=== PATIENT | male | born 1980 | race Hispanic/Latino ===

== ENCOUNTER 2017-06-19 12:09 | Emergency (ER) | payer MEDICARE ==
[2017-06-19 12:09] VITALS: BMI 24.2
[2017-06-19 12:16] VITALS: BP 138/76; PULSE 118; RESP 18; TEMP 98.5; O2SAT 98
== END 2017-06-19 13:14 | disposition left against medical advice (07) ==
LOC: C.ER 12:09
DX: R56.9 Unspecified convulsions (principal); Z02.9 Encounter for administrative examinations, unspecified

== ENCOUNTER 2017-06-27 01:06 | Emergency (ER) | payer MEDICARE ==
[2017-06-27 01:06] VITALS: BMI 24.2
--- NOTE | 2017-06-27 02:20 | C.PDOC ---
History Of Present Illness 36 year old male with a Hx of schizophrenia and bipolar disorder presents to the ER requesting a dose of xanax to hold him off until he gets a refill of his medications tomorrow. Denies hallucinations, homicidal ideation, or suicidal ideation. Time Seen by Provider: 06/27/17 01:34 Chief Complaint (Nursing): Psychiatric Evaluation History Per: Patient History/Exam Limitations: no limitations Onset/Duration Of Symptoms: Hrs Current Symptoms Are (Timing): Still Present Suicide/Self Injury Attempted (Context): None Associated Symptoms: denies: Depression, Paranoia, Suicidal Thoughts, Suicidal Plan Involuntary Hold By: None Recent travel outside of the [place]: No Past Medical History Reviewed: Historical Data, Nursing Documentation, Vital Signs Vital Signs: Last Vital Signs Temp 98.2 F 06/27/17 03:23 Pulse 89 06/27/17 03:23 Resp 20 06/27/17 03:23 BP 163/95 H 06/27/17 03:23 Pulse Ox 99 06/27/17 05:35 - Medical History PMH: Anxiety, Back Problems, Benign Prostatic Hyperplasia, Bipolar Disorder, Depression, Migraine, Schizophrenia Surgical History: Tonsillectomy (age 4) - [facility] Procedures INJECT/INFUSE NEC (04/14/07) PSYCHIA INTERV/EVAL NEC (04/18/14) PSYCHIAT DRUG THERAP NEC (09/26/04) Family History: States: Unknown Family Hx - Social History Hx Tobacco Use: No Hx Alcohol Use: No Hx Substance Use: No - Immunization History Hx Tetanus Toxoid Vaccination: No Hx Influenza Vaccination: Yes Hx Pneumococcal Vaccination: No Review Of Systems Constitutional: Negative for: Fever, Chills Gastrointestinal: Negative for: Nausea, Vomiting Psych: Negative for: Anxiety, Suicidal ideation Physical Exam - Physical Exam Appears: Well, Non-toxic, No Acute Distress Skin: Normal Color, Warm, Dry Head: Atraumatic, Normacephalic Eye(s): bilateral: Normal Inspection, EOMI Ear(s): Bilateral: Normal Oral Mucosa: Moist Chest: Symmetrical, No Tenderness Cardiovascular: Rhythm Regular Respiratory: Normal Breath Sounds, No Rales, No Rhonchi, No Wheezing Neurological/Psych: Oriented x3, Normal Speech Gait: Steady ED Course And Treatment O2 Sat by Pulse Oximetry: 99 (Room air) Pulse Ox Interpretation: Normal Progress Note: Patient was seen and evaluated by plant worker who discussed case with Dr. Wilkinson who cleared patient for discharge. Patient give a dose of xanax and discharge with instructions to follow up with PMD. Disposition - Disposition Referrals: Non [facility] Provider, [Primary Care Provider] - Disposition: HOME/ ROUTINE Disposition Time: 02:19 Condition: STABLE Additional Instructions: Please follow up with your psychiatrist Please warehouse order picker your meds as stated Return to ER if worse Instructions: Anxiety (ED) Forms: [employer]app[employer]ive (Argentine) - Clinical Impression Clinical Impression: Schizophrenia, Anxiety - Scribe Statement The provider has reviewed the documentation as recorded by the Scribe Yoshi Cooper All medical record entries made by the Scribe were at my direction and personally dictated by me. I have reviewed the chart and agree that the record accurately reflects my personal performance of the history, physical exam, medical decision making, and the department course for this patient. I have also personally directed, reviewed, and agree with the discharge instructions and disposition.
[2017-06-27 03:24] VITALS: BP 163/95; PULSE 89; RESP 20; TEMP 98.2
[2017-06-27 05:32] VITALS: O2SAT 99
== END 2017-06-27 03:24 | disposition home or self-care (01) ==
LOC: C.ER 01:06 → SUPCPDRO 01:06 → C.ER 03:24
DX: F41.9 Anxiety disorder, unspecified (principal); F20.9 Schizophrenia, unspecified

== ENCOUNTER 2017-08-16 20:24 | Inpatient (IN) | payer MEDICARE ==
[2017-08-16 20:24] VITALS: BMI 24.2
[2017-08-16 20:52] VITALS: RESP 20
--- NOTE | 2017-08-16 21:24 | C.PDOC ---
History Of Present Illness Patient presents to the ER with a complaint of feeling depressed and hearing voices. Denies suicidal or homicidal ideation. Time Seen by Provider: 08/16/17 21:24 Chief Complaint (Nursing): Psychiatric Evaluation History Per: Patient History/Exam Limitations: no limitations Onset/Duration Of Symptoms: Days Current Symptoms Are (Timing): Still Present Suicide/Self Injury Attempted (Context): None Modifying Factor(s): None Severity: None Pain Scale Rating Of: 0 Associated Symptoms: Depression, Other (Hearing voices). denies: Suicidal Thoughts, Suicidal Plan Involuntary Hold By: None Recent travel outside of the [place]: No Past Medical History Reviewed: Historical Data, Nursing Documentation, Vital Signs Vital Signs: Last Vital Signs Temp 98.7 F 08/16/17 20:46 Pulse 109 H 08/16/17 20:46 Resp 20 08/16/17 20:46 BP 111/70 08/16/17 20:46 Pulse Ox 99 08/16/17 23:02 - Medical History PMH: Anxiety, Back Problems, Benign Prostatic Hyperplasia, Bipolar Disorder, Depression, Migraine, Schizophrenia Surgical History: Tonsillectomy (age 4) - [facility] Procedures INJECT/INFUSE NEC (04/14/07) PSYCHIA INTERV/EVAL NEC (04/18/14) PSYCHIAT DRUG THERAP NEC (09/26/04) Family History: States: Unknown Family Hx - Social History Hx Tobacco Use: No Hx Alcohol Use: No Hx Substance Use: No - Immunization History Hx Tetanus Toxoid Vaccination: No Hx Influenza Vaccination: Yes Hx Pneumococcal Vaccination: No Review Of Systems Constitutional: Negative for: Fever, Chills Gastrointestinal: Negative for: Nausea, Vomiting, Diarrhea Psych: Positive for: Depression, Other (Hearing voices. No homicidal ideation.) . Negative for: Suicidal ideation Physical Exam - Physical Exam Appears: Non-toxic Skin: Warm, Dry Head: Normacephalic Oral Mucosa: Moist Chest: Symmetrical, No Tenderness Cardiovascular: Rhythm Regular Respiratory: No Rales, No Rhonchi, No Wheezing Gastrointestinal/Abdominal: Soft, No Tenderness Neurological/Psych: Oriented x3 ED Course And Treatment - Laboratory Results Result Diagrams: 08/16/17 22:13 08/16/17 22:13 O2 Sat by Pulse Oximetry: 99 (room air) Pulse Ox Interpretation: Normal Progress Note: EKG, blood work, and urinalysis ordered. Disposition Discussed With : Tamra Ritchie Comment: accepted the pt onher service and took over the care at 11:20PM Doctor Will See Patient In The: Hospital Counseled Patient/Family Regarding: Studies Performed, Diagnosis - Disposition Disposition: HOSPITALIZED Disposition Time: 21:24 Condition: FAIR Forms: [facility] (Mauritian) - Clinical Impression Clinical Impression: Schizophrenia - Scribe Statement The provider has reviewed the documentation as recorded by the Scribe Yoshi Cooper All medical record entries made by the Scribe were at my direction and personally dictated by me. I have reviewed the chart and agree that the record accurately reflects my personal performance of the history, physical exam, medical decision making, and the department course for this patient. I have also personally directed, reviewed, and agree with the discharge instructions and disposition. Decision To Admit - Pt Status Changed To: Hospital Disposition Of: Inpatient - Admit Certification Admit to Inpatient:: After my assessment, the patient will require hospitalization for at least two midnights. This is because of the severity of symptoms shown, intensity of services needed, and/or the medical risk in this patient being treated as an outpatient. - InPatient: Physician Admission Certification: I certify that this patient requires 2 or more midnights of care for the following reason:: After my assessment, the patient will require hospitalization for at least two midnights. This is because of the severity of symptoms shown, intensity of services needed, and/or the medical risk in this patient being treated as an outpatient. - . Bed Request Type: Psychiatry Admitting Physician: Tamra Ritchie Patient Diagnosis: Schizophrenia
[2017-08-16 22:16] LABS: BASO % 0.2 % (0.0-2.0); EOS % 0.3 % (0.0-4.0); HEMOGLOBIN 15.2 g/dL (12.0-18.0); LYMPH # 1.1 K/uL (1.0-4.3); MEAN CELL VOLUME 86.3 fL (80.0-94.0); MEAN CORPUSCULAR HEMOGLOBIN 29.4 pg (27.0-31.0); MEAN PLATELET VOLUME 7.1 fL (7.2-11.7); MONO # 0.8 K/uL (0.0-0.8); NEUT # 10.1 K/uL (1.8-7.0); NEUT % 83.5 % (50.0-75.0); RBC 5.18 Mil/uL (4.40-5.90); RED CELL DISTRIBUTION WIDTH 13.7 % (11.5-14.5)
[2017-08-16 22:18] LABS: URINE BILIRUBIN NEGATIVE (NEGATIVE); URINE BLOOD NEGATIVE (NEGATIVE); URINE CLARITY Clear (Clear); URINE COLOR Straw (YELLOW); URINE GLUCOSE (UA) NORMAL (Normal); URINE LEUKOCYTE ESTERASE NEG Leu/uL (Negative); URINE NITRATE NEGATIVE (NEGATIVE); URINE PROTEIN NEGATIVE (NEGATIVE); URINE UROBILINOGEN NORMAL mg/dL (0.2-1.0)
[2017-08-16 22:19] LABS: PLATELET COUNT 343 K/uL (130-400); WHITE BLOOD COUNT 12.1 K/uL (4.8-10.8)
[2017-08-16 22:31] LABS: ALB/GLOB RATIO 1.5 (1.0-2.1); ALBUMIN 4.2 g/dL (3.5-5.0); ALT/SGPT 17 U/L (21-72); AST/SGOT 25 U/L (17-59); BLOOD UREA NITROGEN 9 mg/dL (9-20); CALCIUM 8.4 mg/dl (8.6-10.4); GFR AFRICAN-AMERICAN > 60; GFR NON-AFRICAN AMERICAN > 60
[2017-08-16 22:34] LABS: BARBITURATES, UR NEGATIVE (NEGATIVE); BENZODIAZEPINES, UR NEGATIVE (NEGATIVE); OPIATES, UR NEGATIVE (NEGATIVE); PHENCYCLIDINE, UR NEGATIVE (NEGATIVE)
[2017-08-16 22:40] LABS: NEUTROPHIL 82 % (50-75); TOTAL CELLS COUNTED 100
[2017-08-16 22:41] LABS: LYMPHOCYTE 11 % (20-40); MONOCYTE 7 % (0-10); PLATELET ESTIMATE NORMAL (NORMAL)
[2017-08-17 00:18] VITALS: O2SAT 97
--- NOTE | 2017-08-17 01:03 | PCM.BM ---
<Dash Covarrubias - Last Filed: 08/17/17 01:01> Treatment Plan Problems - Problems identified on initial assessmt Auditory Hallucination Date Initiated: 08/17/17 Time Initiated: 00:25 Assessment reference: NA Status: Active Visual Hallucination Date Initiated: 08/17/17 Time Initiated: 00:25 Assessment reference: NA Status: Active Treatment assets and liabiliti Patient Assests: adapts well, cooperative, insightful, self-reliant, ADL independent, negotiates basic needs Patient Liabilities: live alone, poor support system - Milieu Protocol Maintain good personal hygiene: daily Encourage regular showers, daily Remind patient to perform daily oral care, daily Assist patient to perform ADL's Maintain personal safety: every shift Educate patient to report safety concerns to staff, every shift Monitor environment for contraband/sharps Medication safety: Monitor for expected outcome, potential side effects: every shift, Assess barriers to learning: every shift, Assess readiness for medication education: every shift <Bobbi Kim - Last Filed: 08/17/17 10:39> Family Contact Family involvement: Famliy/SO not involved - Goals for Treatment Patient goals for treatment: "I need an outpatient program." Discharge/Continuing Care - Education Needs Education Needs: Patient Medication, Patient Coping Skills - Discharge Discharge Criteria: Tolerates medication w/o severe side effects, Free of Suicidal thoughts, Reduction of target symptoms Discharge to:: Home - Treatment Team Participation Discussed with Family/SO: No Was Patient/Family/SO present at Treatment Team Meeting: Yes <Ken Maki - Last Filed: 08/17/17 14:35> - Diagnosis (1) Stimulant use disorder Status: Acute Interventions: 08/17/17 14:35 * Assess 7x/week regarding severity of withdrawal * Educate regarding risks, benefits, side effects and alternatives of medications * Use Motivational Interviewing for abstinence * Use CBT for relapse prevention * Medication management for withdrawal symptoms * Encourage medication assisted treatment * (2) Sedative, hypnotic or anxiolytic use disorder, severe, dependence Status: Acute Interventions: 08/17/17 14:35 * Assess 7x/week regarding severity of withdrawal * Educate regarding risks, benefits, side effects and alternatives of medications * Use Motivational Interviewing for abstinence * Use CBT for relapse prevention * Medication management for withdrawal symptoms * Encourage medication assisted treatment * (3) Schizophrenia Status: Acute Interventions: 08/17/17 14:35 * Assess/adjust medications daily and /or as needed * See patient on an individual basis 7x/week to assess status of hallucinations * Discuss risks, benefits, side effects and alternatives of medications *
--- NOTE | 2017-08-17 11:47 | PCM.PSYCH ---
Initial Psychiatric Evaluation - Initial Psychiatric Evaluation Type of Admission: Voluntary Legal Status: Capacity Chief Complaint (in patient's own words): "I need med adjustment" History of Present Illness and Precipitating Events: The patient is seen, chart reviewed and case discussed. This is a 36-year-old male, single, no child, living alone in an apartment around [facility]. He says that he is alienated from his family and as per chart he broke up with his girlfriend 4 months ago. The patient is a poor historian, very guarded and evasive. He is also very irate and selective about his medications. Currently, he is on a near-toxic, dangerous and nonsensical medication regimen from a Dr. Prescott, "a neurologist" he claims. He takes two max dose stimulants together: adderall 60 mg/d AND vyvanse 70 mg/d. On top of that he is on 150 mg elavil, which he blames for his current problems (paranoia, voices, etc.) and Xanax 2 mg TID! And recently he was given 20 tablets of Oxy 10 mg for "gum surgery." He refuses the fact that stimulants, especially in high-doses, can cause psychotic reactions and also counteracts Xanax as they can cause severe anxiety , and that Xanax causes addiction... He blames the commercial underwriter with "assuming things " (??) and says he has no intention to stop them, but on a positive note agreed to "consider" and agreed with Librium detox for the Xanax. He asked for several new-generation but non-formulary medications as well, but then agreed with Zyprexa. He does not want to use any antidepressant or Seroquel and is "allergic " to many meds. He reports paranoid delusions or preoccupations: "people watching me, there are people outside the window" etc. but they are less intense now and he denies AVH which he had at home; shadows, whispers, etc. He denies goldy/homi ideation. Denies drug use, alcohol, is vague about his daily life or stressors. Past psych hx: Dx'ed with schizophrenia, bipolar d/o, schizoafective d/o and had at least 10 admissions, incl. once at a [facility]. He says he didn't have "luck with psychiatrists" and now sees a neurologist but is open to referrals. Family psych hx: Denies Medical hx: Alleged narcolepsy. Current Medications: Active Medications Generic Name Dose Route Start Last Admin Trade Name Freq PRN Reason Stop Dose Admin Chlordiazepoxide 0 mg 08/17/17 12:00 Librium PO 08/22/17 11:59 Q6 BERRY Taper Chlordiazepoxide 25 mg 08/17/17 11:41 Librium PO 08/21/17 11:42 Q6H PRN benzo withdrawal Clonidine HCl 0.1 mg 08/17/17 11:41 Catapres PO Q4H PRN Symptoms of alcohol withdrawl Hydroxyzine HCl 50 mg 08/17/17 11:43 Atarax PO Q6H PRN Anxiety Olanzapine 5 mg 08/17/17 21:00 Zyprexa PO 08/17/17 21:01 ONCE ONE Olanzapine 10 mg 08/18/17 22:00 Zyprexa PO HS BERRY Pneumococcal Polyvalent Vaccine 0.5 ml 08/20/17 10:20 Pneumovax 23 Vaccine IM 08/20/17 10:21 .ONCE ONE Trazodone HCl 100 mg 08/17/17 11:43 Desyrel PO HS PRN Insomnia Past Psychiatric History - Past Psychiatric History Previous Treatment History: Inpatient Pertinent Medical Hx (Current Medical&Sleep Prob, Allergies): Allergies Allergy/AdvReac Type Severity Reaction Status Date / Time duloxetine HCl Allergy Verified 08/16/17 20:53 [From Cymbalta] promethazine Allergy Verified 08/16/17 20:53 quetiapine fumarate Allergy Verified 08/16/17 20:53 [From Seroquel] terbinafine HCl Allergy Verified 08/16/17 20:53 [From Lamisil] trazodone Allergy Verified 08/16/17 20:53 haloperidol [From Haldol] AdvReac Severe grinds Verified 08/16/17 20:53 teeth No Known Home Med 08/16/17 Review of Systems - Psychiatric Psychiatric: Abnormal Sleep Pattern, Anxiety, Change in Appetite, Difficulty Concentrating, Hallucinations (less), Irritability, Mood Swings, Paranoia. absent: Homicidal Ideation, Suicidal Ideation Mental Status Examination - Personal Presentation Personal Presentation: Looks older than stated age - Affect Affect: Constricted - Motor Activity Motor Activity: Calm - Reliability in Providing Information Reliability in Providing Information: Fair - Speech Speech: Disorganized - Mood Mood: Anxious, Other (irate) - Formal Thought Process Formal Thought Process: Hallucinations, Delusions, Paranoia, Loosening of associations - Cognitive Functions Orientation: Person, Place, Situation, Time Sensorium: Alert Attention/Concentration: Attentive Estimate of Intelligence: Average Judgement: Imparied, as evidence by: Poor judgement Memory: Recent intact, as evidence by: Ability to recall events of the day, Remote intact, as evidenced by: Abilit to recall sig. life events - Risk Risk: Seizure, Withdrawal, Diminished functioning - Limitations Limitations: Living alone DSM 5 DX - DSM 5 DSM 5 Diagnosis: Schizoaffective d/o - bipolar type Personality d/o - unspecified Psychostimulant use d/o -severe Sedative hypnotic or anxiolytic use d/o - severe Anxiety d/o- unspecified - Recommended/Plan of Treatment Treatment Recommendations and Plan of Treatment: Librium detox Zyprexa 5 mg tonight, 10 mg tomorrow Monitor opioid wdw (uds negative but he had a rx) Gabapentin for augmentation As needed medications All risks, benefits and alternatives of the meds discussed, and the pt agreed and understood. Attend groups and activities Supportive therapy and psychoeducation [place] for abstinence CBT for relapse prevention Refer to rehab or IOP, and self-help groups 34 min Projected ELOS: 7 days Prognosis: Fair (low insight) Discharge Plan and Discharge Criteria: No acute sxs refer to outpt psych and IOP
[2017-08-18 06:42] VITALS: TEMP 97.6
--- NOTE | 2017-08-18 11:33 | PCM.PYCHPN ---
Psychiatric Progress Note - Psychiatric Progress Note Patient seen today, length of contact: 15 min Patient Chief Complaint: I'm feeling irritable Medication Change: Yes Medical Record Reviewed: Yes Mental Status Examination - Cognitive Function Orientation: Person, Place, Situation, Time Memory: Intact Attention: WNL Concentration: Poor Association: WNL Fund of Knowledge: Poor - Mood Mood: Anxious, Other (irate) - Affect Affect: Constricted - Speech Speech: Soft - Formal Thought Process Formal Thought Process: Hallucinations, Delusions, Paranoia, Loosening of associations - Suicidal Ideation Suicidal Ideation: No - Homicidal Ideation Homicidal Ideation: No Goal/Treatment Plan - Goal/Treatment Plan Need for Continued Stay: Severe depression anxiety, Severe functional impairment Progress Toward Problem(s) and Goals/Treatment Plan: Schizoaffective d/o - bipolar type Personality d/o - unspecified Psychostimulant use d/o -severe Sedative hypnotic or anxiolytic use d/o - severe Anxiety d/o- unspecified Librium detox Zyprexa 5 mg tonight, 10 mg tomorrow Monitor opioid wdw (uds negative but he had a rx) Gabapentin for augmentation As needed medications All risks, benefits and alternatives of the meds discussed, and the pt agreed and understood. Attend groups and activities Supportive therapy and psychoeducation [place] for abstinence CBT for relapse prevention Refer to rehab or IOP, and self-help groups - Smoking Cessation Smoking Cessation Initiated: No
--- NOTE | 2017-08-18 11:53 | PCM.PYCHPN ---
Psychiatric Progress Note - Psychiatric Progress Note Patient seen today, length of contact: 16 min Patient Chief Complaint: I'm feeling little better Medication Change: Yes Medical Record Reviewed: Yes Mental Status Examination - Cognitive Function Orientation: Person, Place, Situation, Time Memory: Intact Attention: WNL Concentration: Poor Association: Loose Fund of Knowledge: Poor - Mood Mood: Anxious, Other (irate) - Affect Affect: Constricted - Speech Speech: Soft - Formal Thought Process Formal Thought Process: Hallucinations, Delusions, Paranoia, Loosening of associations - Suicidal Ideation Suicidal Ideation: No - Homicidal Ideation Homicidal Ideation: No Goal/Treatment Plan - Goal/Treatment Plan Need for Continued Stay: Severe depression anxiety, Severe functional impairment Progress Toward Problem(s) and Goals/Treatment Plan: Schizoaffective d/o - bipolar type Personality d/o - unspecified Psychostimulant use d/o -severe Sedative hypnotic or anxiolytic use d/o - severe Anxiety d/o- unspecified Librium detox Zyprexa 5 mg tonight, 10 mg tomorrow Monitor opioid wdw (uds negative but he had a rx) Gabapentin for augmentation As needed medications All risks, benefits and alternatives of the meds discussed, and the pt agreed and understood. Attend groups and activities Supportive therapy and psychoeducation [place] for abstinence CBT for relapse prevention Refer to rehab or IOP, and self-help groups - Smoking Cessation Smoking Cessation Initiated: No
[2017-08-18] MEDS ORDERED: Magnesium Hydroxide Susp 30 ml UD PO PRN (20:24)
[2017-08-20] MEDS ORDERED: Influenza Vaccine 60 mcg/0.5 mL SYR (4YR UP) IM ONE (10:00)
[2017-08-20] MEDS ORDERED: Pneumococcal 23-Valent Vaccine IM ONE (10:20)
--- NOTE | 2017-08-20 13:25 | PCM.PYCHPN ---
Psychiatric Progress Note - Psychiatric Progress Note Patient seen today, length of contact: 16 min Patient Chief Complaint: "I need my Xanax, it's for my agoraphobia" Problems Identified/Issues Discussed: The pt is seen, chart reviewed, case discussed with staff. Support given, CBT and IA used briefly likely to no avail as he is rigid and fixated on wy he needs to continue these meds He was a little lenient on the risks of Xanax and agreed to try Pristiq when he leaves and indiv psychotherapy. No new symptoms reported, improving slowly and needs more time No SEs from medications, risks discussed. After care discussed - will go to outpt program. Medication Change: Yes (detox changes daily, zyprexa naveen be 20 mg HS tomorrow) Medical Record Reviewed: Yes Mental Status Examination - Cognitive Function Orientation: Person, Place, Situation, Time Memory: Intact Attention: WNL Concentration: Poor Association: Loose Fund of Knowledge: Poor - Mood Mood: Anxious, Other (irate) - Affect Affect: Constricted - Formal Thought Process Formal Thought Process: Hallucinations, Delusions, Paranoia, Loosening of associations - Suicidal Ideation Suicidal Ideation: No - Homicidal Ideation Homicidal Ideation: No Goal/Treatment Plan - Goal/Treatment Plan Need for Continued Stay: Severe depression anxiety, Severe functional impairment Progress Toward Problem(s) and Goals/Treatment Plan: Librium detox Zyprexa 20 mg HS Monitor opioid wdw (uds negative but he had a rx) Gabapentin for augmentation As needed medications All risks, benefits and alternatives of the meds discussed, and the pt agreed and understood. Attend groups and activities Supportive therapy and psychoeducation [place] for abstinence CBT for relapse prevention Refer to rehab or IOP, and self-help groups
[2017-08-20 15:35] VITALS: BP 108/62; PULSE 90
--- NOTE | 2017-08-21 12:05 | PCM.PYCHDC ---
Mental Status Examination - Mental Status Examination Orientation: Person, Place, Situation, Time Memory: Intact Mood: Neutral Affect: Constricted Speech: Appropriate Attention: WNL Concentration: WNL Association: WNL Fund of Knowledge: WNL Formal Thought Process: No Impairment Suicidal Ideation: No Current Homicidal Ideation?: No Discharge Summary - Discharge Note Reason for Hospitalization: Feeling paranoid, hearing/seeing things Consultations:: List each consultation separately and include: 1. Reason for request. 2. Findings. 3. Follow-up Summary of Hospital Course include:: 1. Description of specific treatment plan utilized for patients during their course of treatmen. 2. Summarize the time- course for resolution of acute symptoms and/or regressed behaviors. 3. Describe issues identified and worked on during hospitalization. 4. Describe medication utilized. 5. Describe medical problems identified and treated. 6. Reassessment of suicide risk Summary of Hospital Course: The pt was admitted and started on treatment with psychotherapy, support, psychoeducation and medications. [place] and CBT used. The pt attended groups and activities, as well as milieu therapy. All the risks and benefits of medications are discussed and the patient understood and agreed. The pt improved with the treatments provided. After care discussed with the patient. He was vague and preferred to go back to his neurologist Patient feels stable at this time and wishes to go home. He states he is able to care for himself and feels like he can manage his medications well. He is warned against using the same doses of stimulants as he did not take it here and also he is advised to use xanax minimally and very rarely He understood - Diagnosis (1) Stimulant use disorder Status: Acute (2) Sedative, hypnotic or anxiolytic use disorder, severe, dependence Status: Acute (3) Schizophrenia Status: Acute - Final Diagnosis (DSM 5) Condition upon Discharge: FAIR DSM 5: Schizoaffective d/o - bipolar type Personality d/o - unspecified Psychostimulant use d/o -severe Sedative hypnotic or anxiolytic use d/o - severe Anxiety d/o- unspecified Disposition: HOME/ ROUTINE Follow-up Treatment Plan: Continue below medications after discharge. Follow after care plan as discussed. Use relapse prevention skills Return to ER or call 911 if suicidal, homicidal or symptoms relapse. Stay away from stress, alcohol and drugs. See primary doctor regularly and get labs. Prescriptions/Medication Reconciliation: RX: chlorproMAZINE [Thorazine] 25 mg PO BID PRN #30 tab PRN Reason: severe anxiety or insomnia RX: OLANZapine [Zyprexa] 20 mg PO HS #30 tab RX: traZODone [Desyrel] 100 mg PO HS PRN #30 tab PRN Reason: Insomnia - Antipsychotic Medications Pt discharged on 2 or more routine antipsychotic medications: Yes
== END 2017-08-21 12:44 | disposition home or self-care (01) | DRG 885 ==
LOC: C.ER 20:24 → C.5E 23:25
PROVIDERS: ADMIT Psychiatry & Neurology Psychiatry; ATTEND Psychiatry & Neurology Psychiatry
PROC: GZ3ZZZZ Medication Management (ICD-10-PCS; principal; 2017-08-16)
PROC: GZHZZZZ Group Psychotherapy (ICD-10-PCS; 2017-08-16)
PROC: GZ56ZZZ Individual Psychotherapy, Supportive (ICD-10-PCS; 2017-08-16)
PROC: HZ2ZZZZ Detoxification Services for Substance Abuse Treatment (ICD-10-PCS; 2017-08-16)
PROC: HZ59ZZZ Individual Psychotherapy for Substance Abuse Treatment, Supportive (ICD-10-PCS; 2017-08-16)
DX: F25.0 Schizoaffective disorder, bipolar type (principal); F13.20 Sedative, hypnotic or anxiolytic dependence, uncomplicated; F22 Delusional disorders; F15.10 Other stimulant abuse, uncomplicated; F40.00 Agoraphobia, unspecified; F60.9 Personality disorder, unspecified; G47.419 Narcolepsy without cataplexy

== ENCOUNTER 2017-09-19 00:26 | Emergency (ER) | payer MEDICARE ==
[2017-09-19 00:27] VITALS: BMI 24.2
[2017-09-19 00:37] VITALS: RESP 20; O2SAT 100
--- NOTE | 2017-09-19 01:17 | C.PDOC ---
History Of Present Illness 36 yo male w/PMhx of schizophrenia BIBA for evaluation of B/L hands pain for past 2 months after sustained mechanical fall. Pt reports, "fell onto my hands" . Pain is localized R>L, worse with movement. During the interview, pt moves his hands freely without painful discomfort. No obvious deformity noted. Pt denies any other active complaints at present time. Poor historian. Time Seen by Provider: 09/19/17 00:38 Chief Complaint (Nursing): Finger,Hand,&Wrist History Per: Patient Past Medical History Reviewed: Historical Data, Nursing Documentation, Vital Signs Vital Signs: Last Vital Signs Temp 97.7 F 09/19/17 00:30 Pulse 72 09/19/17 00:30 Resp 20 09/19/17 00:30 BP 104/70 09/19/17 00:30 Pulse Ox 100 09/19/17 01:19 - Medical History PMH: Anxiety, Back Problems, Benign Prostatic Hyperplasia, Bipolar Disorder, Depression, Migraine, Schizophrenia Denies: Diabetes, Hepatitis, HIV, HTN, Chronic Kidney Disease, Seizures, Sexually Transmitted Disease Surgical History: Tonsillectomy (age 4) - [facility] Procedures DETOXIFICATION SERVICES FOR SUBSTANCE ABUSE TREATMENT (08/16/17) GROUP PSYCHOTHERAPY (08/16/17) INDIV PSYCHOTHERAPY FOR SUBSTANCE ABUSE TREATMENT, SUPPORT (08/16/17) INDIVIDUAL PSYCHOTHERAPY, SUPPORTIVE (08/16/17) INJECT/INFUSE NEC (04/14/07) MEDICATION MANAGEMENT (08/16/17) PSYCHIA INTERV/EVAL NEC (04/18/14) PSYCHIAT DRUG THERAP NEC (09/26/04) Family History: States: Unknown Family Hx - Social History Hx Tobacco Use: No Hx Alcohol Use: Yes (10 yrs. ago) Hx Substance Use: Yes - Immunization History Hx Tetanus Toxoid Vaccination: No Hx Influenza Vaccination: Yes Hx Pneumococcal Vaccination: No Review Of Systems Except As Marked, All Systems Reviewed And Found Negative. Musculoskeletal: Positive for: Hand Pain Skin: Negative for: Rash, Bruising Neurological: Negative for: Weakness, Numbness Physical Exam - Physical Exam Appears: Non-toxic, No Acute Distress Skin: Normal Color, Warm, No Rash, No Ecchymosis Head: Normacephalic Eye(s): bilateral: PERRL Extremity: Normal ROM (B/L hands), Tenderness (mild over thenar area Left hand) , Capillary Refill (less than 2sec to B/L hands), No Deformity, No Swelling Neurological/Psych: Oriented x3, Normal Speech, Normal Motor, Normal Sensation, Normal Reflexes ED Course And Treatment O2 Sat by Pulse Oximetry: 100 Pulse Ox Interpretation: Normal - Other Rad B/L hands X-Ray: Interpreted by Me, Viewed By Me Interpretation: (-) acute fx or dislocation Progress Note: On re-evaluation, pt is afebrile, hemodynamicaly stable. Non- toxic. B/L hands: FAROM, no neurovascular deficits. Neuorlogicaly intact. Imaging review and appeas normal. Pt has clinical findings c/w B/L hand contusion, pain, nos. Pt advised. ref. to f/u with PMD, Ortho In 2-3 days for re-eavl. return to ED if any worsening or new changes. Disposition Counseled Patient/Family Regarding: Studies Performed, Diagnosis, Need For Followup - Disposition Referrals: [facility] at [facility] [Outside] Disposition: HOME/ ROUTINE Disposition Time: 01:18 Condition: STABLE Additional Instructions: Follow up with PMD, orthopedist in 2-3 days for re-evaluation and further treatment return to ED if any worsening or new changes. Instructions: Hand Sprain (ED) Forms: [employer] (Thai) - Clinical Impression Clinical Impression: Arthralgia of hands, bilateral
[2017-09-19 02:10] VITALS: BP 118/73; PULSE 76; TEMP 98
--- NOTE | 2017-09-19 10:24 | RAD ---
PROCEDURE: Right Hand Radiographs. HISTORY: PAIN COMPARISON: None. FINDINGS: BONES: Normal. No fracture. JOINTS: Normal. No osteoarthritic changes. SOFT TISSUES: Normal. OTHER FINDINGS: None. IMPRESSION: Normal right hand radiographs.
--- NOTE | 2017-09-19 10:25 | RAD ---
PROCEDURE: Left Hand Radiographs. HISTORY: PAIN COMPARISON: None. FINDINGS: BONES: Normal. No fracture. JOINTS: Normal. No osteoarthritic changes. SOFT TISSUES: Normal. OTHER FINDINGS: None. IMPRESSION: Normal left hand radiographs.
== END 2017-09-19 02:06 | disposition home or self-care (01) ==
LOC: C.ER 00:26
DX: M25.542 Pain in joints of left hand (principal); M25.541 Pain in joints of right hand; F20.9 Schizophrenia, unspecified

== ENCOUNTER 2017-12-22 04:34 | Emergency (ER) | payer MEDICARE ==
[2017-12-22 04:34] VITALS: BMI 24.2
[2017-12-22 04:49] VITALS: BP 122/81; PULSE 130; RESP 16; TEMP 100.3; O2SAT 99
--- NOTE | 2017-12-22 04:58 | C.PDOC ---
History Of Present Illness 37 year old male presents to the ER with a complaint of feeling anxious and manic. Denies suicidal ideation or homicidal ideation. Chief Complaint (Nursing): Psychiatric Evaluation History Per: Patient History/Exam Limitations: no limitations Onset/Duration Of Symptoms: Hrs Current Symptoms Are (Timing): Still Present Suicide/Self Injury Attempted (Context): None Associated Symptoms: Anxiety. denies: Suicidal Thoughts Involuntary Hold By: None Recent travel outside of the [place]: No Past Medical History Reviewed: Historical Data, Nursing Documentation, Vital Signs Vital Signs: Last Vital Signs Temp 100.3 F H 12/22/17 04:45 Pulse 130 H 12/22/17 04:45 Resp 16 12/22/17 04:45 BP 122/81 12/22/17 04:45 Pulse Ox 99 12/22/17 05:03 - Medical History PMH: Anxiety, Back Problems, Benign Prostatic Hyperplasia, Bipolar Disorder, Depression, Migraine, Schizophrenia Surgical History: Tonsillectomy (age 4) - [facility] Procedures DETOXIFICATION SERVICES FOR SUBSTANCE ABUSE TREATMENT (08/16/17) GROUP PSYCHOTHERAPY (09/23/17) INDIV PSYCHOTHERAPY FOR SUBSTANCE ABUSE TREATMENT, SUPPORT (08/16/17) INDIVIDUAL PSYCHOTHERAPY, BEHAVIORAL (09/23/17) INDIVIDUAL PSYCHOTHERAPY, SUPPORTIVE (08/16/17) INJECT/INFUSE NEC (04/14/07) MEDICATION MANAGEMENT (08/16/17) PSYCHIA INTERV/EVAL NEC (04/18/14) PSYCHIAT DRUG THERAP NEC (09/26/04) Family History: States: Unknown Family Hx - Social History Hx Tobacco Use: No Hx Alcohol Use: No Hx Substance Use: No - Immunization History Hx Tetanus Toxoid Vaccination: No Hx Influenza Vaccination: Yes Hx Pneumococcal Vaccination: No Review Of Systems Constitutional: Negative for: Fever, Chills Cardiovascular: Negative for: Chest Pain, Palpitations Respiratory: Negative for: Cough, Shortness of Breath Gastrointestinal: Negative for: Nausea, Vomiting Psych: Positive for: Anxiety, Other (Manic. No homicidal ideation). Negative for: Suicidal ideation Physical Exam - Physical Exam Appears: Non-toxic, No Acute Distress Skin: Normal Color, Warm, Dry Head: Atraumatic, Normacephalic Eye(s): bilateral: Normal Inspection Oral Mucosa: Moist Chest: Symmetrical, No Tenderness Cardiovascular: Rhythm Regular Respiratory: Normal Breath Sounds, No Rales, No Rhonchi, No Wheezing Gastrointestinal/Abdominal: Soft, No Tenderness Neurological/Psych: Oriented x3, Normal Speech ED Course And Treatment O2 Sat by Pulse Oximetry: 99 (Room air) Pulse Ox Interpretation: Normal Progress Note: Patient refused any blood work or urine test. Disposition Counseled Patient/Family Regarding: Diagnosis - Disposition Referrals: [facility] at [facility] [Outside] Disposition: HOME/ ROUTINE Disposition Time: 05:01 Condition: STABLE Instructions: Generalized Anxiety Disorder, Bipolar Disorder Forms: [employer] (Korean) - POA Present On Arrival: None - Clinical Impression Clinical Impression: Manic bipolar I disorder, Anxiety disorder - Scribe Statement The provider has reviewed the documentation as recorded by the Scribe Yoshi Cooper All medical record entries made by the Scribe were at my direction and personally dictated by me. I have reviewed the chart and agree that the record accurately reflects my personal performance of the history, physical exam, medical decision making, and the department course for this patient. I have also personally directed, reviewed, and agree with the discharge instructions and disposition.
== END 2017-12-22 05:17 | disposition home or self-care (01) ==
LOC: C.ER 04:34
DX: F31.9 Bipolar disorder, unspecified (principal); F41.9 Anxiety disorder, unspecified

== ENCOUNTER 2018-02-03 11:52 | Emergency (ER) | payer MEDICARE ==
[2018-02-03 11:52] VITALS: BMI 24.2
== END 2018-02-03 12:22 | disposition left against medical advice (07) ==
LOC: C.ER 11:52
DX: Z02.89 Encounter for other administrative examinations (principal); H57.10 Ocular pain, unspecified eye

== ENCOUNTER 2018-02-04 21:33 | Emergency (ER) | payer MEDICARE ==
[2018-02-04 21:33] VITALS: BMI 24.2
[2018-02-04] MEDS ORDERED: Tetracaine 0.5% Ophth (OR ONLY) ONE (22:51)
[2018-02-04] MEDS ORDERED: Fluorescein 1 mg Ophthalmic Strip ONE (22:52)
--- NOTE | 2018-02-04 23:23 | C.PDOC ---
History Of Present Illness Pt presents to ER with c/o ot itching to right eye for over 1 week, pt states I feel like rubbing my right eye constantly. Pt denies eye discharge, eye pain, redness, or decrease vision. Pt has not tried anything at home for the eye Time Seen by Provider: 02/04/18 22:12 Chief Complaint (Nursing): Eye Problem History Per: Patient History/Exam Limitations: no limitations Current Symptoms Are (Timing): Still Present Severity: Mild Quality: Burning Associated Symptoms: Itching. denies: Pain, Decreased Vision, FB Sensation Past Medical History Vital Signs: Last Vital Signs Temp 99 F 02/04/18 23:24 Pulse 100 H 02/04/18 23:24 Resp 18 02/04/18 23:24 BP 120/70 02/04/18 23:24 Pulse Ox 99 02/04/18 23:24 - Medical History PMH: Anxiety, Back Problems, Benign Prostatic Hyperplasia, Bipolar Disorder, Depression, Migraine, Schizophrenia Denies: Diabetes, Hepatitis, HIV, HTN, Chronic Kidney Disease, Seizures, Sexually Transmitted Disease Surgical History: Tonsillectomy (age 4) - [facility] Procedures DETOXIFICATION SERVICES FOR SUBSTANCE ABUSE TREATMENT (08/16/17) GROUP PSYCHOTHERAPY (09/23/17) INDIV PSYCHOTHERAPY FOR SUBSTANCE ABUSE TREATMENT, SUPPORT (08/16/17) INDIVIDUAL PSYCHOTHERAPY, BEHAVIORAL (09/23/17) INDIVIDUAL PSYCHOTHERAPY, SUPPORTIVE (08/16/17) INJECT/INFUSE NEC (04/14/07) MEDICATION MANAGEMENT (08/16/17) PSYCHIA INTERV/EVAL NEC (04/18/14) PSYCHIAT DRUG THERAP NEC (09/26/04) Family History: States: Unknown Family Hx - Social History Hx Tobacco Use: No Hx Alcohol Use: No Hx Substance Use: No - Immunization History Hx Tetanus Toxoid Vaccination: No Hx Influenza Vaccination: Yes Hx Pneumococcal Vaccination: No Review Of Systems Constitutional: Negative for: Fever, Chills Eyes: Positive for: Other (right eye itching). Negative for: Pain, Vision Change, Conjunctivae Inflammation, Redness Neurological: Negative for: Headache Physical Exam - Physical Exam Appears: Well, Non-toxic Skin: Normal Color Head: Atraumatic, Other (no periorbital swelling or facial tenderness) Eye(s): bilateral: Normal Inspection, PERRL, EOMI, right: Other (inimal conjunctival injection, no eye discharge, corneal abrasion on fluorescein stain , VA 20/40 OU) Neurological/Psych: Oriented x3 ED Course And Treatment O2 Sat by Pulse Oximetry: 95 Progress Note: Pt with corneal abrasion possibly from vigorous rubbing of eye, eye drops prescribed and antihistamine. Pt advised to follow up with Ophthalmology Reassessment Condition: Improved Disposition Counseled Patient/Family Regarding: Diagnosis, Need For Followup, Rx Given - Disposition Referrals: Jagjit Arroyo [Staff Provider] - Disposition: HOME/ ROUTINE Disposition Time: 23:20 Condition: STABLE Additional Instructions: Apply drops as directed Follow up with Dr Arroyo- call for appointment Return to ER if worse Prescriptions: Cetirizine HCl [Zyrtec] 10 mg PO DAILY #10 capsule Tobramycin 0.3% [Tobrex 0.3% Opth Soln] 1 drop OD BID #1 bottle Instructions: Conjunctivitis (Pinkeye) (DC), Corneal Abrasion (DC) Forms: [employer] (Romanian) - Clinical Impression Clinical Impression: Corneal abrasion, Conjunctivitis
[2018-02-04 23:24] VITALS: BP 120/70; PULSE 100; RESP 18; TEMP 99
[2018-02-10 20:18] VITALS: O2SAT 95
== END 2018-02-04 23:27 | disposition home or self-care (01) ==
LOC: C.ER 21:33
DX: H10.9 Unspecified conjunctivitis (principal); S05.01XA Injury of conjunctiva and corneal abrasion without foreign body, right eye, initial encounter; X58.XXXA Exposure to other specified factors, initial encounter; F20.9 Schizophrenia, unspecified

== ENCOUNTER 2018-03-12 11:17 | Emergency (ER) | payer MEDICARE ==
[2018-03-12 11:17] VITALS: BMI 24.2
== END 2018-03-12 11:28 | disposition left against medical advice (07) ==
LOC: C.ER 11:17
DX: Z02.89 Encounter for other administrative examinations (principal); R56.9 Unspecified convulsions

== ENCOUNTER 2018-03-31 10:16 | Emergency (ER) | payer MEDICARE ==
[2018-03-31 10:17] VITALS: BMI 24.2
[2018-03-31 10:25] VITALS: RESP 18; O2SAT 98
[2018-03-31] MEDS ORDERED: DiphenhydrAMINE 50 mg/ml Inj IM STA (10:51)
[2018-03-31] MEDS ORDERED: DiphenhydrAMINE 50 mg/ml Inj ONE (11:06)
--- NOTE | 2018-03-31 11:33 | C.PDOC ---
History Of Present Illness 37 year old male presents to the emergency department with complaints of feeling anxious, feeling like his tongue is moving involuntarily, and difficulty swallowing. Patient states that he has been experiencing these symptoms since yesterday after taking Thorazine, which he was recently prescribed. He denies shortness of breath, chest pain, auditory/visual hallucinations, or suicidal/homicidal ideation. He states that previously a combination of Cogentin and Ativan has helped him when he had this previously. Time Seen by Provider: 03/31/18 10:20 Chief Complaint (Nursing): Allergic Reaction History Per: Patient History/Exam Limitations: no limitations Onset/Duration Of Symptoms: Days (1) Current Symptoms Are (Timing): Still Present Possible Cause: Medication (Thorazine) Associated Symptoms: Trouble Swallowing Severity: Mild Past Medical History Reviewed: Historical Data, Nursing Documentation, Vital Signs Vital Signs: Last Vital Signs Temp 98 F 03/31/18 12:13 Pulse 86 03/31/18 12:13 Resp 18 03/31/18 12:13 BP 126/73 03/31/18 12:13 Pulse Ox 98 04/04/18 12:57 - Medical History PMH: Anxiety, Back Problems, Benign Prostatic Hyperplasia, Bipolar Disorder, Depression, Migraine, Schizophrenia Surgical History: Tonsillectomy (age 4) - [facility] Procedures DETOXIFICATION SERVICES FOR SUBSTANCE ABUSE TREATMENT (08/16/17) GROUP PSYCHOTHERAPY (09/23/17) INDIV PSYCHOTHERAPY FOR SUBSTANCE ABUSE TREATMENT, SUPPORT (08/16/17) INDIVIDUAL PSYCHOTHERAPY, BEHAVIORAL (09/23/17) INDIVIDUAL PSYCHOTHERAPY, SUPPORTIVE (08/16/17) INJECT/INFUSE NEC (04/14/07) MEDICATION MANAGEMENT (08/16/17) PSYCHIA INTERV/EVAL NEC (04/18/14) PSYCHIAT DRUG THERAP NEC (09/26/04) Family History: States: No Known Family Hx - Social History Hx Tobacco Use: No Hx Alcohol Use: No Hx Substance Use: No - Immunization History Hx Tetanus Toxoid Vaccination: No Hx Influenza Vaccination: Yes Hx Pneumococcal Vaccination: No Review Of Systems Constitutional: Negative for: Fever, Chills ENT: Positive for: Other (difficulty swallowing, involuntary tongue movement) Cardiovascular: Negative for: Chest Pain, Palpitations Respiratory: Negative for: Cough, Shortness of Breath Gastrointestinal: Negative for: Nausea, Vomiting, Abdominal Pain Neurological: Negative for: Weakness, Numbness, Altered Mental Status, Headache , Dizziness Psych: Positive for: Anxiety. Negative for: Suicidal ideation Physical Exam - Physical Exam Appears: Well, Non-toxic, In Acute Distress (mildly anxious), Other (grinding his jaw) Skin: Warm, Dry, No Rash Head: Atraumatic, Normacephalic Eye(s): bilateral: Normal Inspection Oral Mucosa: Moist Tongue: Normal Appearing, No Swelling Lips: Normal Appearing Teeth: No Normal Dentition, Other (poor dentition) Neck: Normal, Supple Cardiovascular: Rhythm Regular Respiratory: Normal Breath Sounds, No Rales, No Rhonchi, No Wheezing Extremity: Normal ROM Neurological/Psych: Oriented x3, Normal Speech, Normal Cognition, Normal Cranial Nerves, No Cerebellar Signs, Normal Motor, Normal Sensation Gait: Steady ED Course And Treatment O2 Sat by Pulse Oximetry: 98 (RA) Pulse Ox Interpretation: Normal Progress Note: Patient given IM Ativan and IM Benadryl. Reevaluation Time: 12:00 Reassessment Condition: Improved (Patient reassessed, is resting comfortably, states his symptoms have resolved and he feels better. He was instructed to follow up with his psychiatrist within 1 week, and he understands he should return to ED if his symptoms return/worsen. Patient also instructed to stop taking thorazine.) Disposition Counseled Patient/Family Regarding: Diagnosis, Need For Followup, Rx Given - Disposition Referrals: [facility] [Outside] Disposition: HOME/ ROUTINE Disposition Time: 12:00 Condition: STABLE Additional Instructions: FOLLOW UP WITH YOUR PSYCHIATRIST WITHIN 1 WEEK DO NOT USE THORAZINE AGAIN RETURN TO ER IF YOU HAVE ANY CONCERNING SYMPTOMS Prescriptions: DiphenhydrAMINE [Benadryl] 25 mg PO Q6 PRN #20 cap PRN Reason: ITCHING/DYSTONIA Instructions: Dystonia Forms: General Discharge Instructions, [facility] (Slovak) Print Language: TAJIK - Clinical Impression Clinical Impression: Dystonic drug reaction - Scribe Statement The provider has reviewed the documentation as recorded by the Scribe (Brian Patel) Provider Attestation: All medical record entries made by the Scribe were at my direction and personally dictated by me. I have reviewed the chart and agree that the record accurately reflects my personal performance of the history, physical exam, medical decision making, and the department course for this patient. I have also personally directed, reviewed, and agree with the discharge instructions and disposition.
[2018-03-31 12:14] VITALS: BP 126/73; PULSE 86; TEMP 98
== END 2018-03-31 12:15 | disposition home or self-care (01) ==
LOC: C.ER 10:16
DX: G24.09 Other drug induced dystonia (principal); T43.3X5A Adverse effect of phenothiazine antipsychotics and neuroleptics, initial encounter
CPT/HCPCS: 96372; 99284; J1200; J2060

== ENCOUNTER 2018-04-07 08:14 | Emergency (ER) | payer MEDICARE ==
[2018-04-07 08:14] VITALS: BMI 24.2
--- NOTE | 2018-04-07 08:39 | C.PDOC ---
History Of Present Illness 37 y/o male presents to ED c/o right ear/TMJ pain for the last 3 days. Pain is worse with jaw movement. Denies hearing loss, discharge, fever, or trauma. History of anxiety. R EAR/TMJ PAIN X 3 DAYS. WORSE W JAW MOVEMENT. DENIES HEARING LOSS, DC, FEVER, TRAUMA. HO ANXIETY EXAM NAD HEENT B/L EARS WNL, NO ERYTHEMA, WAX, SWELL. TM INTACT. R TMJ AREA TEND +PAIN W ROM. NO SWELL, DEFORM. ATRAUM REMAINDER NEG MDM NO INFXN, FB EARS. POSSIBLE TMJ. NSAIDS, FU DENTAL Chief Complaint (Nursing): Foreign Body History Per: Patient History/Exam Limitations: None Onset/Duration Of Symptoms: Days Current Symptoms Are (Timing): Still Present Quality (Ear): denies: Redness, Swelling, Discharge, Foreign Body Past Medical History Reviewed: Historical Data, Nursing Documentation, Vital Signs Vital Signs: Last Vital Signs Temp 98.8 F 04/07/18 08:20 Pulse 97 H 04/07/18 08:20 Resp 16 04/07/18 08:20 BP 117/78 04/07/18 08:20 Pulse Ox 100 04/07/18 09:03 - Medical History PMH: Anxiety, Back Problems, Benign Prostatic Hyperplasia, Bipolar Disorder, Depression, Migraine, Schizophrenia Denies: Diabetes, Hepatitis, HIV, HTN, Chronic Kidney Disease, Seizures, Sexually Transmitted Disease Surgical History: Tonsillectomy (age 4) - [facility] Procedures DETOXIFICATION SERVICES FOR SUBSTANCE ABUSE TREATMENT (08/16/17) GROUP PSYCHOTHERAPY (09/23/17) INDIV PSYCHOTHERAPY FOR SUBSTANCE ABUSE TREATMENT, SUPPORT (08/16/17) INDIVIDUAL PSYCHOTHERAPY, BEHAVIORAL (09/23/17) INDIVIDUAL PSYCHOTHERAPY, SUPPORTIVE (08/16/17) INJECT/INFUSE NEC (04/14/07) MEDICATION MANAGEMENT (08/16/17) PSYCHIA INTERV/EVAL NEC (04/18/14) PSYCHIAT DRUG THERAP NEC (09/26/04) Family History: States: Unknown Family Hx - Social History Hx Tobacco Use: No Hx Alcohol Use: No Hx Substance Use: No - Immunization History Hx Tetanus Toxoid Vaccination: No Hx Influenza Vaccination: Yes Hx Pneumococcal Vaccination: No Review Of Systems Except As Marked, All Systems Reviewed And Found Negative. Constitutional: Negative for: Fever, Chills ENT: Positive for: Ear Pain (right) Physical Exam - Physical Exam Appears: Non-toxic, No Acute Distress Skin: Normal Color, Warm, Dry Head: Atraumatic, Normacephalic, Tenderness (tenderness to right TMJ area, (+) pain with ROM. No deformity or swelling. ) Eye(s): bilateral: Normal Inspection Ear(s): Bilateral: Normal (no erythema, wax, or swelling. TM intact) Nose: Normal Oral Mucosa: Moist Throat: Normal, No Erythema, No Exudate Neck: Normal ROM, Supple Chest: Symmetrical Cardiovascular: Rhythm Regular Extremity: Normal ROM Neurological/Psych: Oriented x3, Normal Speech ED Course And Treatment O2 Sat by Pulse Oximetry: 100 (RA) Pulse Ox Interpretation: Normal Medical Decision Making Medical Decision Making: NO INFXN, FB EARS. POSSIBLE TMJ. NSAIDS, FU DENTAL Disposition Counseled Patient/Family Regarding: Diagnosis, Need For Followup - Disposition Referrals: YOUR,DENTIST [Other] Disposition: HOME/ ROUTINE Disposition Time: 08:36 Condition: GOOD Instructions: Temporomandibular Joint (TMJ) Disorders (DC) Forms: [employer] (Telugu) - Clinical Impression Clinical Impression: Otalgia, TMJ syndrome - Scribe Statement The provider has reviewed the documentation as recorded by the Scribe KP All medical record entries made by the Scribe were at my direction and personally dictated by me. I have reviewed the chart and agree that the record accurately reflects my personal performance of the history, physical exam, medical decision making, and the department course for this patient. I have also personally directed, reviewed, and agree with the discharge instructions and disposition.
[2018-04-07 09:02] VITALS: BP 117/78; PULSE 97; RESP 16; TEMP 98.8; O2SAT 100
== END 2018-04-07 08:39 | disposition home or self-care (01) ==
LOC: C.ER 08:14
DX: M26.621 Arthralgia of right temporomandibular joint (principal); H92.01 Otalgia, right ear; F20.9 Schizophrenia, unspecified

== ENCOUNTER 2018-05-09 21:45 | Inpatient (IN) | payer MEDICARE ==
[2018-05-09 21:45] VITALS: BMI 24.2
--- NOTE | 2018-05-09 22:43 | C.PDOC ---
History Of Present Illness 37 year old male presents to the ER with a complaint of fleeting thoughts and irresponsible social behavior. Patient states symptoms began after being kicked out of the alf 2 days ago due to issues with the rent. Patient has a Hx of chronic schizophrenia, does not have all of his medications on him at this time. Patient states he wants to be inpatient because he feels his moods are labile. Denies homicidal ideation or suicidal ideation. Time Seen by Provider: 05/09/18 22:12 Chief Complaint (Nursing): Psychiatric Evaluation History Per: Patient History/Exam Limitations: no limitations Onset/Duration Of Symptoms: Days Current Symptoms Are (Timing): Still Present Suicide/Self Injury Attempted (Context): None Associated Symptoms: Other (Fleeting thoughts, Irresponsible social behavior.) Involuntary Hold By: None Recent travel outside of the [place]: No Past Medical History Reviewed: Historical Data, Nursing Documentation, Vital Signs Vital Signs: Last Vital Signs Temp 98.3 F 05/09/18 22:03 Pulse 83 05/09/18 22:03 Resp 19 05/09/18 22:03 BP 109/72 05/09/18 22:03 Pulse Ox 99 05/09/18 22:03 - Medical History PMH: Anxiety, Back Problems, Benign Prostatic Hyperplasia, Bipolar Disorder, Depression, Migraine, Schizophrenia Denies: Diabetes, Hepatitis, HIV, HTN, Chronic Kidney Disease, Seizures, Sexu ally Transmitted Disease Surgical History: Tonsillectomy - [facility] Procedures DETOXIFICATION SERVICES FOR SUBSTANCE ABUSE TREATMENT (08/16/17) GROUP PSYCHOTHERAPY (09/23/17) INDIV PSYCHOTHERAPY FOR SUBSTANCE ABUSE TREATMENT, SUPPORT (08/16/17) INDIVIDUAL PSYCHOTHERAPY, BEHAVIORAL (09/23/17) INDIVIDUAL PSYCHOTHERAPY, SUPPORTIVE (08/16/17) INJECT/INFUSE NEC (04/14/07) MEDICATION MANAGEMENT (08/16/17) PSYCHIA INTERV/EVAL NEC (04/18/14) PSYCHIAT DRUG THERAP NEC (09/26/04) Family History: States: Unknown Family Hx - Social History Hx Tobacco Use: No Hx Alcohol Use: No Hx Substance Use: No - Immunization History Hx Tetanus Toxoid Vaccination: No Hx Influenza Vaccination: No Hx Pneumococcal Vaccination: No Review Of Systems Constitutional: Negative for: Fever, Chills Cardiovascular: Negative for: Chest Pain, Palpitations Respiratory: Negative for: Cough, Shortness of Breath Gastrointestinal: Negative for: Nausea, Vomiting Psych: Positive for: Other (Fleeting thoughts, Irresponsible social behavior. No homicidal ideation). Negative for: Suicidal ideation Physical Exam - Physical Exam Appears: Non-toxic, Other (Calm cooperative) Skin: Normal Color, Warm, Dry Head: Atraumatic, Normacephalic Eye(s): bilateral: Normal Inspection Oral Mucosa: Moist Neck: Normal, Supple Chest: Symmetrical, No Tenderness Cardiovascular: Rhythm Regular Respiratory: Normal Breath Sounds, No Rales, No Rhonchi, No Wheezing Gastrointestinal/Abdominal: Soft, No Tenderness Neurological/Psych: Oriented x3, Normal Speech ED Course And Treatment - Laboratory Results Result Diagrams: 05/09/18 23:03 05/09/18 23:03 Lab Interpretation: Abnormal (tox + benzo/syed) O2 Sat by Pulse Oximetry: 99 (Room air) Pulse Ox Interpretation: Normal - Physician Consult Information Outcome Of Conversation: 0045: d/w Crisis, ok to admit Disposition Doctor Will See Patient In The: Hospital Counseled Patient/Family Regarding: Studies Performed, Diagnosis - Disposition Disposition: HOSPITALIZED Disposition Time: 00:43 Condition: GOOD Forms: [employer] (French) - Clinical Impression Clinical Impression: Schizophrenia - Scribe Statement The provider has reviewed the documentation as recorded by the Scribaramis Cooper All medical record entries made by the Bharatiibaramis were at my direction and personally dictated by me. I have reviewed the chart and agree that the record accurately reflects my personal performance of the history, physical exam, medical decision making, and the department course for this patient. I have also personally directed, reviewed, and agree with the discharge instructions and disposition.
[2018-05-09 23:09] LABS: BASO # 0.1 K/uL (0.0-0.2); BASO % 0.9 % (0.0-2.0); EOS # 0.6 K/uL (0.0-0.7); EOS % 7.2 % (0.0-4.0); HEMOGLOBIN 13.4 g/dL (12.0-18.0); LYMPH # 2.1 K/uL (1.0-4.3); LYMPH % 26.1 % (20.0-40.0); MEAN CELL VOLUME 86.7 fL (80.0-94.0); MEAN CORPUSCULAR HEMOGLOBIN 30.6 pg (27.0-31.0); MEAN CORPUSCULAR HGB CONC 35.3 g/dL (33.0-37.0); MEAN PLATELET VOLUME 7.9 fL (7.2-11.7); MONO # 0.7 K/uL (0.0-0.8); MONO % 8.5 % (0.0-10.0); NEUT # 4.6 K/uL (1.8-7.0); NEUT % 57.3 % (50.0-75.0); RBC 4.38 Mil/uL (4.40-5.90); RED CELL DISTRIBUTION WIDTH 13.5 % (11.5-14.5); WHITE BLOOD COUNT 8.1 K/uL (4.8-10.8)
[2018-05-09 23:13] LABS: SQUAMOUS EPITHIAL < 1 /hpf (0-5); URINE BILIRUBIN NEGATIVE (NEGATIVE); URINE BLOOD NEGATIVE (NEGATIVE); URINE CLARITY Clear (Clear); URINE COLOR Yellow (YELLOW); URINE GLUCOSE (UA) NORMAL (Normal); URINE LEUKOCYTE ESTERASE NEG Leu/uL (Negative); URINE PROTEIN NEGATIVE (NEGATIVE); URINE UROBILINOGEN NORMAL mg/dL (0.2-1.0)
[2018-05-09 23:20] LABS: ALB/GLOB RATIO 1.5 (1.0-2.1); ALT/SGPT 32 U/L (21-72); AST/SGOT 27 U/L (17-59); BLOOD UREA NITROGEN 15 mg/dL (9-20); CALCIUM 9.3 mg/dl (8.6-10.4); GFR NON-AFRICAN AMERICAN > 60
[2018-05-09 23:30] LABS: OPIATES, UR NEGATIVE (NEGATIVE); PHENCYCLIDINE, UR NEGATIVE (NEGATIVE)
[2018-05-09 23:31] LABS: BARBITURATES, UR POSITIVE (NEGATIVE); BENZODIAZEPINES, UR POSITIVE (NEGATIVE)
[2018-05-10 01:15] VITALS: O2SAT 100
--- NOTE | 2018-05-10 01:41 | PCM.BM ---
<Rashel Rhodes - Last Filed: 05/10/18 01:40> Treatment Plan Problems - Problems identified on initial assessmt Homicidal Ideation Date Initiated: 05/10/18 Time Initiated: 01:30 Assessment reference: NA Status: Active Depression Date Initiated: 05/10/18 Time Initiated: 01:30 Assessment reference: NA Status: Active Treatment assets and liabiliti Patient Assests: adapts well, cooperative, resourceful, self-reliant, ADL independent, physically healthy, negotiates basic needs, good past tx response, cognitively intact Patient Liabilities: substance abuse - Milieu Protocol Maintain good personal hygiene: daily Encourage regular showers, daily Remind patient to perform daily oral care, every shift Assist patient to perform ADL's Conduct patient checks and document Observation sheet: Q15 minutes Maintain personal safety: every shift Educate patient to report safety concerns to staff, every shift Monitor environment for contraband/sharps Medication safety: Monitor for expected outcome, potential side effects: every shift, Assess barriers to learning: every shift, Assess readiness for medication education: every shift <Ken Maki - Last Filed: 05/10/18 14:11> - Diagnosis (1) Schizophrenia Status: Acute Interventions: 05/10/18 14:11 * Assess/adjust medications daily and /or as needed * See patient on an individual basis 7x/week to assess status of hallucinations * Discuss risks, benefits, side effects and alternatives of medications * <Lizzie Wilson - Last Filed: 05/10/18 15:27> Family Contact Family involvement: Patient does not wish Family/SO involvement Family contact: Patient declines to allow family contact at present - Goals for Treatment Patient goals for treatment: "I want to be refeferred to an outpatient program." Discharge/Continuing Care - Education Needs Education Needs: Patient Medication, Patient Diagnosis/Disease Process, Patient Placement options, Patient Community resources - Discharge Discharge Criteria: Free of Suicidal thoughts, Normal sleep pattern, Ability to care for self, Reduction of target symptoms Discharge to:: Care Home - Treatment Team Participation Discussed with Family/SO: No Was Patient/Family/SO present at Treatment Team Meeting: Yes
[2018-05-10] MEDS ORDERED: Pneumococcal 23-Valent Vaccine IM ONE (10:09)
--- NOTE | 2018-05-10 11:14 | PCM.PSYCH ---
Initial Psychiatric Evaluation - Initial Psychiatric Evaluation Type of Admission: Voluntary Legal Status: Capacity Chief Complaint (in patient's own words): "I am so stressed out" History of Present Illness and Precipitating Events: The pt is seen, chart reviewed and case discussed. He is known from a previous admission He is a 37 y/o WM, single, no child, no job, was living with 4 roommates but now evicted. Pt reports a story about being evicted few days ago without getting any notice. He claims he was giving his rent to one of the roommates and he did not allegedly pay the rent, so all of them got evicted. He claims he didn't get a notice and blames the friend again. He had to leave almost everything behind and now he is trying to recover them, incl. his picture ID. Since then he had been feeling more depressed and hearing voices, feeling paranoid. No SI today, but he has vague HI re the friend who allegedly cheated him. No plans or urges. No drug or alcohol use He was on high doses of Vyvanse 70 mg and Adderall 20 mg TID, as well as Sapphris, Effexor (Pristiq was not covered) He also takes Xanax 2 mg TID (confirmed) and prn Fioricet. He defends this extremely high dose med regimen Past psych hx: Dx'ed with schizophrenia, bipolar d/o, schizoafective d/o and had at least 10 [facility], [facility]. He says he couldn't find a psychiatrist and now sees a neurologist every 3 months. He is in [place]. Family psych hx: Denies Medical hx: Alleged narcolepsy. Current Medications: Active Medications Generic Name Dose Route Start Last Admin Trade Name Freq PRN Reason Stop Dose Admin Acetaminophen/Butalbital/Caffeine 1 tab 05/10/18 08:47 Fioricet PO Q8H PRN Migraine headaches, max 2x/24h Alprazolam 2 mg 05/10/18 10:00 05/10/18 10:54 Xanax PO 2 mg TID BERRY Administration Hydroxyzine HCl 50 mg 05/10/18 08:47 Atarax PO Q6H PRN Anxiety Ibuprofen 600 mg 05/10/18 08:47 Motrin Tab PO Q6H PRN Pain, moderate (4-7) Pneumococcal Polyvalent Vaccine 0.5 ml 05/12/18 10:00 Pneumovax 23 Vaccine IM 05/12/18 10:01 .ONCE ONE Temazepam 15 mg 05/10/18 11:08 Restoril PO HS PRN Insomnia Venlafaxine HCl 150 mg 05/10/18 11:15 Effexor Xr PO DAILY BERRY Past Psychiatric History - Past Psychiatric History Pertinent Medical Hx (Current Medical&Sleep Prob, Allergies): Allergies Allergy/AdvReac Type Severity Reaction Status Date / Time duloxetine HCl Allergy RASH Verified 05/09/18 22:09 [From Cymbalta] promethazine Allergy RASH Verified 05/09/18 22:09 quetiapine fumarate Allergy RASH Verified 05/09/18 22:09 [From Seroquel] terbinafine HCl Allergy RASH Verified 05/09/18 22:09 [From Lamisil] trazodone Allergy APs Verified 05/09/18 22:09 haloperidol [From Haldol] AdvReac Severe grinds Verified 05/09/18 22:09 teeth Amitriptyline [Elavil] 150 mg PO DAILY 03/31/18 DiphenhydrAMINE [Benadryl] 25 mg PO Q6 PRN #20 cap 03/31/18 Eszopiclone [Lunesta] 3 mg PO HS 03/31/18 chlorproMAZINE [chlorPROMAZINE HCL] 50 mg PO DAILY 03/31/18 ALPRAZolam [Xanax] 2 mg PO TID 04/07/18 Lisdexamfetamine Dimesylate [Vyvanse] 70 mg PO DAILY 04/07/18 Review of Systems - Neurological Neurological: UNREMARKABLE - Psychiatric Psychiatric: Anhedonia, Anxiety, Change in Appetite, Depression, Difficulty Concentrating, Hallucinations, Irritability, Paranoia. absent: Homicidal Ideation, Suicidal Ideation Mental Status Examination - Personal Presentation Personal Presentation: Looks older than stated age - Affect Affect: Constricted - Motor Activity Motor Activity: Calm - Reliability in Providing Information Reliability in Providing Information: Good - Speech Speech: Organized - Mood Mood: Depressed, Anxious - Formal Thought Process Formal Thought Process: No Impairment - Cognitive Functions Orientation: Person, Place, Situation, Time Sensorium: Alert Attention/Concentration: Easily distracted Estimate of Intelligence: Average Judgement: Intact, as evidence by: Insight regarding need for hospitalization Memory: Recent intact, as evidence by: Ability to recall events of the day, Remote intact, as evidenced by: Abilit to recall sig. life events - Risk Risk: Withdrawal, Diminished functioning - Strength & Assets Inventory Strength & Assets Inventory: Cooperative - Limitations Limitations: Other DSM 5 DX - DSM 5 DSM 5 Diagnosis: Schizoaffective d/o - depressed type Personality d/o - unspecified r/o Psychostimulant use d/o -severe r/o Sedative hypnotic or anxiolytic use d/o - severe NAY - Recommended/Plan of Treatment Treatment Recommendations and Plan of Treatment: Start Effexor XR 150, Xanax 2 mg TID (Confirmed) and restoril (he is "allergic" to many meds and we do not have Lunesta) As need medications All risks, benefits and alternatives of the meds discussed, and the pt agreed and understood. Attend groups and activities Individual therapy daily Psychoeducation and support daily Encourage compliance with meds and after care Refer to outpatient program Teach healthy lifestyle methods, i.e. diet, exercise, meditation Smoking cessation and patch if needed 32 min Projected ELOS: 4 days - Smoking Cessation Smoking Cessation Initiated: Yes
[2018-05-10] MEDS: Venlafaxine 150 mg ER Cap PO SCH (11:54)
[2018-05-10] MEDS: Apap-Butalbital-Caffeine 325-50-40mg Tab PO PRN (17:34)
[2018-05-11] MEDS: Venlafaxine 150 mg ER Cap PO SCH (09:07)
--- NOTE | 2018-05-11 12:32 | PCM.PYCHPN ---
Psychiatric Progress Note - Psychiatric Progress Note Patient seen today, length of contact: 15 min Patient Chief Complaint: I was feeling depressed.' Problems Identified/Issues Discussed: Patient seen and evaluated, chart reviewed and discussed with the nurse. Pt reports depressed mood, and reports feelings of hopelessness and helplessness. Pt remained disorganized and internally preoccupied. He remained isolated and withdrawn, and confined to his room. Patient is compliant with medications and denies any side effects. Symptoms are improving but pt needs more time to stabilize. Support and psychoeducation given. Medication Change: Yes Medical Record Reviewed: Yes Mental Status Examination - Cognitive Function Orientation: Person, Place, Situation, Time Memory: Intact Attention: WNL Concentration: Poor Association: WNL Fund of Knowledge: Poor - Mood Mood: Depressed, Anxious - Affect Affect: Constricted - Speech Speech: Soft - Formal Thought Process Formal Thought Process: No Impairment - Suicidal Ideation Suicidal Ideation: No - Homicidal Ideation Homicidal Ideation: No Goal/Treatment Plan - Goal/Treatment Plan Need for Continued Stay: Severe depression anxiety, Severe functional impairment Progress Toward Problem(s) and Goals/Treatment Plan: Schizoaffective d/o - depressed type Personality d/o - unspecified r/o Psychostimulant use d/o -severe r/o Sedative hypnotic or anxiolytic use d/o - severe NAY Start Effexor XR 150, Xanax 2 mg TID (Confirmed) and restoril (he is "allergic" to many meds and we do not have Lunesta) As need medications All risks, benefits and alternatives of the meds discussed, and the pt agreed and understood. Attend groups and activities Individual therapy daily Psychoeducation and support daily Encourage compliance with meds and after care Refer to outpatient program Teach healthy lifestyle methods, i.e. diet, exercise, meditation Smoking cessation and patch if needed
[2018-05-12] MEDS: Venlafaxine 150 mg ER Cap PO SCH (09:34)
[2018-05-12] MEDS ORDERED: Pneumococcal 23-Valent Vaccine IM ONE (10:00)
[2018-05-12] MEDS: Apap-Butalbital-Caffeine 325-50-40mg Tab PO PRN (16:21)
[2018-05-13 06:47] VITALS: BP 127/87; PULSE 64; RESP 20; TEMP 97.5
[2018-05-13] MEDS: Venlafaxine 150 mg ER Cap PO SCH (09:55)
--- NOTE | 2018-05-13 10:01 | PCM.PYCHDC ---
Mental Status Examination - Mental Status Examination Orientation: Person, Place, Situation, Time Memory: Intact Mood: Depressed Affect: Constricted Speech: Appropriate Attention: WNL Concentration: WNL Association: WNL Fund of Knowledge: WNL Formal Thought Process: No Impairment Suicidal Ideation: No Current Homicidal Ideation?: No Discharge Summary - Discharge Note Consultations:: List each consultation separately and include: 1. Reason for request. 2. Findings. 3. Follow-up Summary of Hospital Course include:: 1. Description of specific treatment plan utilized for patients during their course of treatmen. 2. Summarize the time- course for resolution of acute symptoms and/or regressed behaviors. 3. Describe issues identified and worked on during hospitalization. 4. Describe medication utilized. 5. Describe medical problems identified and treated. 6. Reassessment of suicide risk Summary of Hospital Course: On Admission: The pt is seen, chart reviewed and case discussed. He is known from a previous admission He is a 37 y/o WM, single, no child, no job, was living with 4 roommates but now evicted. Pt reports a story about being evicted few days ago without getting any notice. He claims he was giving his rent to one of the roommates and he did not allegedly pay the rent, so all of them got evicted. He claims he didn't get a notice and blames the friend again. He had to leave almost everything behind and now he is trying to recover them, incl. his picture ID. Since then he had been feeling more depressed and hearing voices, feeling paranoid. No SI today, but he has vague HI re the friend who allegedly cheated him. No plans or urges. No drug or alcohol use He was on high doses of Vyvanse 70 mg and Adderall 20 mg TID, as well as Sapphris, Effexor (Pristiq was not covered) He also takes Xanax 2 mg TID (confirmed) and prn Fioricet. He defends this extremely high dose med regimen Past psych hx: Dx'ed with schizophrenia, bipolar d/o, schizoafective d/o and had at least 10 admissions, [facility] He says he couldn't find a psychiatrist and now sees a neurologist every 3 months. He is [place]. Family psych hx: Denies Medical hx: Alleged narcolepsy. He will return to his neurologist, will check with legal compliance officer regarding his eviction. - Diagnosis (1) Schizophrenia Status: Acute - Final Diagnosis (DSM 5) Condition upon Discharge: GOOD DSM 5: Schizoaffective d/o - depressed type Personality d/o - unspecified r/o Psychostimulant use d/o -severe r/o Sedative hypnotic or anxiolytic use d/o - severe NAY Disposition: HOME/ ROUTINE Follow-up Treatment Plan: Continue below medications after discharge. Follow after care plan as discussed. Use relapse prevention skills Return to ER or call 911 if suicidal, homicidal or symptoms relapse. Stay away from stress, alcohol and drugs. See primary doctor regularly and get labs. Prescriptions/Medication Reconciliation: ARIPiprazole [Abilify] 10 mg PO QPM #30 tab Venlafaxine [Effexor XR] 150 mg PO DAILY #30 cer
--- NOTE | 2018-05-14 00:28 | PCM.PYCHPN ---
Psychiatric Progress Note - Psychiatric Progress Note Patient seen today, length of contact: 15 min Patient Chief Complaint: I m feeling depressed.' Problems Identified/Issues Discussed: Patient seen and evaluated, chart reviewed and discussed with the nurse. Pt repo rts depressed mood, and reports feelings of hopelessness and helplessness. Pt remained disorganized and internally preoccupied. He remained isolated and withdrawn, and confined to his room. Patient is compliant with medications and denies any side effects. Symptoms are improving but pt needs more time to stabilize. Support and psychoeducation given. Medication Change: Yes Medical Record Reviewed: Yes Mental Status Examination - Cognitive Function Orientation: Person, Place, Situation, Time Memory: Intact Attention: WNL Concentration: Poor Association: WNL Fund of Knowledge: Poor - Mood Mood: Depressed, Anxious - Affect Affect: Constricted - Speech Speech: Soft - Formal Thought Process Formal Thought Process: No Impairment - Suicidal Ideation Suicidal Ideation: No - Homicidal Ideation Homicidal Ideation: No Goal/Treatment Plan - Goal/Treatment Plan Need for Continued Stay: Severe depression anxiety, Severe functional impairment Progress Toward Problem(s) and Goals/Treatment Plan: Schizoaffective d/o - depressed type Personality d/o - unspecified r/o Psychostimulant use d/o -severe r/o Sedative hypnotic or anxiolytic use d/o - severe NAY Start Effexor XR 150, Xanax 2 mg TID (Confirmed) and restoril (he is "allergic" to many meds and we do not have Lunesta) As need medications All risks, benefits and alternatives of the meds discussed, and the pt agreed and understood. Attend groups and activities Individual therapy daily Psychoeducation and support daily Encourage compliance with meds and after care Refer to outpatient program Teach healthy lifestyle methods, i.e. diet, exercise, meditation Smoking cessation and patch if needed - Smoking Cessation Smoking Cessation Initiated: No
== END 2018-05-13 12:10 | disposition home or self-care (01) | DRG 885 ==
LOC: C.ER 21:45 → C.5E 05-10 00:44
PROVIDERS: ADMIT Psychiatry & Neurology Psychiatry; ATTEND Psychiatry & Neurology Psychiatry
PROC: GZHZZZZ Group Psychotherapy (ICD-10-PCS; principal; 2018-05-10)
PROC: GZ58ZZZ Individual Psychotherapy, Cognitive-Behavioral (ICD-10-PCS; 2018-05-10)
PROC: GZ56ZZZ Individual Psychotherapy, Supportive (ICD-10-PCS; 2018-05-10)
DX: F25.1 Schizoaffective disorder, depressive type (principal); F13.20 Sedative, hypnotic or anxiolytic dependence, uncomplicated; F15.20 Other stimulant dependence, uncomplicated; F31.9 Bipolar disorder, unspecified; G47.419 Narcolepsy without cataplexy; N40.0 Benign prostatic hyperplasia without lower urinary tract symptoms; G43.909 Migraine, unspecified, not intractable, without status migrainosus; G47.00 Insomnia, unspecified; F60.9 Personality disorder, unspecified; F41.1 Generalized anxiety disorder